=== PATIENT | male | born 1985 | race African-American/Black ===

== ENCOUNTER 2018-11-18 00:50 | Emergency (ER) | payer SELFPAY ==
[~2018-11-18] VITALS: Ht 170.2 cm; Wt 90.9 kg
[~2018-11-18 00:50] MED LIST: ALBU8.5H8 INH; PRED20TA PO
[2018-11-18 00:52] VITALS: Ht 170.2 cm; Wt 90.9 kg
[2018-11-18] MEDS ORDERED: IPRATROPIUM (NEB) 0.5 MG/2.5 ML AMP NEB STA (01:09)
[2018-11-18] MEDS ORDERED: METHYLPREDNISOLONE 125 MG INJ IV STA (01:09)
[2018-11-18] MEDS ORDERED: ALBUTEROL 0.5% (NEB) 2.5 MG/0.5 ML AMP INH STA (01:09)
[2018-11-18] MEDS ORDERED: METHYLPREDNISOLONE 40 MG INJ IM STA (01:28)
[2018-11-18 02:48] VITALS: PULSE 87; RESP 20
== END 2018-11-18 03:12 | disposition home or self-care (01) ==
LOC: FTE 00:50
DX: J45.901 Unspecified asthma with (acute) exacerbation (principal); F17.210 Nicotine dependence, cigarettes, uncomplicated
CPT/HCPCS: 94644; 96372; 99284; J2920; J2930